=== PATIENT | male | born 1965 | race Caucasian/White ===

== ENCOUNTER 2018-06-20 07:53 | Emergency (ER) | payer MEDICAID, SELFPAY ==
[2018-06-20 07:56] VITALS: BP 160/90; PULSE 89; RESP 18; TEMP 37; O2SAT 100; BMI 22.6
--- NOTE | 2018-06-20 08:22 | DI.RAD.S_ITS ---
PROCEDURE: XR HIP W PEL IF DONE RT 2V INDICATIONS: fall on recently surgically repaired R hip TECHNIQUE: AP pelvis with lateral view(s) of the right hip(s). COMPARISON: None. FINDINGS: Bones: 3 screws are seen within the right femoral neck. No findings of hardware failure or hardware loosening are seen. No fractures or dislocations. Pelvic ring appears intact. No suspicious bony lesions. Age-appropriate lower lumbar spine degenerative changes are noted. Soft tissues: The visualized bowel gas pattern is normal. No suspicious soft tissue calcifications. IMPRESSION: No acute fractures are seen. Unremarkable postoperative change of the right femoral neck. If there is point tenderness (or other clinical suspicion for a fracture not seen on these images) please consider a dedicated CT for further evaluation. Dictated by: David Mead M.D. on 06/20/2018 at 8:02 Approved by: David Mead M.D. on 06/20/2018 at 8:03
--- NOTE | 2018-06-20 08:51 | ED.LOWEXIN ---
HPI - Extremity Injury (Lower) General Chief Complaint: Extremity Injury, Lower Stated Complaint: FELL, POST OP HIP Time Seen by Provider: 06/20/18 08:00 Source: patient Mode of arrival: ambulatory Limitations: no limitations History of Present Illness HPI Narrative: 52-year-old male with chief complaint of right hip presents with severe pain after he stepped awkwardly off on any recently surgical repaired right hip. on June 10 patient fell and suffered a right femoral neck fracture and was initially evaluated at [facility]. In the and the patient was transferred to [facility] due to bed availability and had surgical repair of right hip on June 11 and was discharged on June 13. Patient presents today complaining of right hip pain after stepping awkwardly at a grocery store. He states he did not fall denies any popping or clicking. He denies any other injuries such as head or neck and is otherwise well and free of complaint. His pain is worse with motion and improves with rest. He denies numbness, tingling or weakness. MD complaint: hip injury Onset (ago): hour(s) Type of Injury: hyperextension Place: other Severity: moderate Relieving factors: rest Exacerbating factors: movement Context: walking Associated symptoms: able to partially bear weight Other symptoms: none Related Data Allergies Allergy/AdvReac Type Severity Reaction Status Date / Time No Known Drug Allergies Allergy Verified 06/20/18 08:20 Review of Systems Review of Systems GENERAL: Denies chills, fatigue, malaise, fever, sweats. HEENT: Denies sinus pain, ear pain, sore throat, difficulty swallowing, dizziness. RESPIRATORY: Denies dyspnea, cough, wheezing, hemoptysis, sputum. CARDIOVASCULAR: Denies chest pain, palpitations, orthopnea, edema, GASTROINTESTINAL: Denies nausea, vomiting, abdominal pain, diarrhea, constipation, melena. : Denies dysuria, frequency, incontinence, hematuria, urinary retention. MUSCULOSKELETAL: See HPI SKIN: Denies rash, skin lesions, or other NEUROLOGIC: Denies weakness, headache, numbness, change in speech, confusion, seizures, incoordination. PSYCHIATRIC: No concerning psychosocial issues. 12 point review of systems is negative except for those stated above [facility] Social History Smoking Status: Current every day smoker Exam Narrative Exam Narrative: GENERAL: This is a well-nourished, well-developed patient, in mild distress. complaining of right hip pain. He is a bit disheveled HEAD: Atraumatic. Normocephalic. No temporal or scalp tenderness. EYES: Pupils equal round and reactive. Extraocular motions intact. No scleral icterus. No injection or drainage. ENT: Nose without bleeding, purulent drainage or septal hematoma. Throat without erythema, tonsillar hypertrophy or exudate. Uvula midline. Airway patent. NECK: Trachea midline. No JVD or lymphadenopathy. Supple, nontender, no meningeal signs. CARDIOVASCULAR: Regular rate and rhythm without murmurs, gallops, or rubs. RESPIRATORY: Clear to auscultation. Breath sounds equal bilaterally. No wheezes, rales, or rhonchi. GASTROINTESTINAL: Abdomen soft, non-tender, nondistended. No hepato-splenomegaly, or palpable masses. No guarding. EXTREMITIES: no shortening or external rotation of right lower extremity. Pain to lateral hip. Surgical dressing is clean, dry and intact, as is the wound. Aging ecchymosis overlying trochanter, yellowing to the bruise suggesting an aged BACK: Nontender without deformity or crepitance. No flank tenderness. NEURO: AOx3. SKIN: No rash or erythema. Initial Vital Signs Initial Vital Signs: Vital Signs Temperature 98.6 F 06/20/18 07:56 Pulse Rate 89 06/20/18 07:56 Respiratory Rate 18 06/20/18 07:56 Blood Pressure 160/90 H 06/20/18 07:56 Pulse Oximetry 100 06/20/18 07:56 Course Orders Ordered: ED Orders 06/20/18 08:22 XR hip w pel if done RT 2V Stat 06/20/18 09:52 CT pelvis wo con Stat Vital Signs - 8 hr 06/20/18 07:56 Temperature 98.6 F Pulse Rate 89 Respiratory Rate 18 Blood Pressure 160/90 H Pulse Oximetry 100 MDM - Extremity Injury (Lower) Imaging Data Hip Xray: Radiologist's impression: [address] [address] XRay Report Signed Patient: Diaz Morgan EMR#: [id number] : 1965Acct:[id number] Age/Sex: 52 / MDate of Service: 06/20/18 Loc: Accession Number: [id number] Procedure: XR hip w pel if done RT 2V Ordering Provider: Steven Umaña D.O. PROCEDURE: XR HIP W PEL IF DONE RT 2V INDICATIONS: fall on recently surgically repaired R hip TECHNIQUE: AP pelvis with lateral view(s) of the right hip(s). COMPARISON: None. FINDINGS: Bones: 3 screws are seen within the right femoral neck. No findings of hardware failure or hardware loosening are seen. No fractures or dislocations. Pelvic ring appears intact. No suspicious bony lesions. Age-appropriate lower lumbar spine degenerative changes are noted. Soft tissues: The visualized bowel gas pattern is normal. No suspicious soft tissue calcifications. IMPRESSION: No acute fractures are seen. Unremarkable postoperative change of the right femoral neck. If there is point tenderness (or other clinical suspicion for a fracture not seen on these images) please consider a dedicated CT for further evaluation. Dictated by: David Mead M.D. on 06/20/2018 at 8:02 Approved by: David Mead M.D. on 06/20/2018 at 8:03 CT Pelvis: Radiologist's impression: PROCEDURE: CT PEL WO CON INDICATIONS: Right hip pain, fall, recent hip surgery TECHNIQUE: Noncontrast 3 mm axial sections acquired through the bony pelvis, with coronal and sagittal reformatting. COMPARISON: None. FINDINGS: Image quality: Excellent. Bones: Postsurgical changes compatible with ORIF of subcapital right femoral neck fracture noted. 2 orthopedic screws have been placed for fixation of the right femoral neck fracture. No lucencies identified at the bone hardware interface. There is anatomic alignment of the fracture fragments following ORIF. No additional fracture is identified. Lower lumbar spine degenerative disc disease and facet arthropathy are noted. Soft tissues: 6.7 x 2.1 cm fluid collection noted in the subcutaneous fat of the right lateral pelvis the level of the greater trochanter of the right femur. IMPRESSION: 1. Status post ORIF of right femoral neck fracture. 2. Fluid collections in the soft tissues of the proximal right thigh adjacent to the right hip which could represent posttraumatic hematoma, however infected fluid collection can't be differentiated by imaging alone. Please correlate with clinical and laboratory Dictated by: Jaylin Pierre MD, PhD on 06/20/2018 at 10:16 Approved by: Jaylin Pierre MD, PhD on 06/20/2018 at 10:23 [facility] Narrative Medical decision making narrative: patient with R hip pain after stepping awkwardly. No direct trauma. No drainage, fever or chills. Plain films and CT demonstrate intact bones and hardware. CT suggests fluid collection which is consistent with hematoma on exam. Discharge Plan Departure Patient Disposition: Home Clinical Impression: Acute pain of right hip Instructions: DI for Hip Pain Activity Restrictions/Additional Instructions: *You have been diagnosed with [ acute right hip pain ] *What to do: * continue to take medications as directed *Follow up with your primary care provider in 2-3 days, call for an appointment. Let them know you were seen in the Emergency Department and that we ask that you be seen in follow up *Return to ER if you should have any new, worsening or concerning symptoms
--- NOTE | 2018-06-20 09:52 | DI.CT.S_ITS ---
PROCEDURE: CT PEL WO CON INDICATIONS: Right hip pain, fall, recent hip surgery TECHNIQUE: Noncontrast 3 mm axial sections acquired through the bony pelvis, with coronal and sagittal reformatting. COMPARISON: None. FINDINGS: Image quality: Excellent. Bones: Postsurgical changes compatible with ORIF of subcapital right femoral neck fracture noted. 2 orthopedic screws have been placed for fixation of the right femoral neck fracture. No lucencies identified at the bone hardware interface. There is anatomic alignment of the fracture fragments following ORIF. No additional fracture is identified. Lower lumbar spine degenerative disc disease and facet arthropathy are noted. Soft tissues: 6.7 x 2.1 cm fluid collection noted in the subcutaneous fat of the right lateral pelvis the level of the greater trochanter of the right femur. IMPRESSION: 1. Status post ORIF of right femoral neck fracture. 2. Fluid collections in the soft tissues of the proximal right thigh adjacent to the right hip which could represent posttraumatic hematoma, however infected fluid collection can't be differentiated by imaging alone. Please correlate with clinical and laboratory Dictated by: Jaylin Pierre MD, PhD on 06/20/2018 at 10:16 Approved by: Jaylin Pierre MD, PhD on 06/20/2018 at 10:23
[2018-06-20 10:30] VITALS: BP 144/93; PULSE 71; RESP 18; O2SAT 100
--- NOTE | 2018-06-20 10:57 | PC.NURSE ---
pt inquired about his medication. pt stated when he arrived they got dumped out and fell on the floor. I can't tell anyone where they are. they don't need to know. i reminded patient what he said. pt repeated the about statement with me and Von Castañeda in room. pt had no meds upon arrival to ER. he did think the rest of his meds might be in his friend's car.
== END 2018-06-20 11:01 | disposition home or self-care (01) ==
PROVIDERS: Emergency Provider Emergency Medicine
DX: M25.551 Pain in right hip (principal); Z98.890 Other specified postprocedural states
CPT/HCPCS: 72192; 73502; 99282; 99284